=== PATIENT | male | born 1990 | race Caucasian/White ===

== ENCOUNTER 2020-03-05 19:19 | Emergency (ER) | payer MEDICARE ==
[~2020-03-05] VITALS: Ht 177.8 cm; Wt 83.9 kg
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
== END 2020-03-05 20:30 | disposition home or self-care (01) ==
LOC: ED 19:19
DX: S60.221A Contusion of right hand, initial encounter (principal); F17.200 Nicotine dependence, unspecified, uncomplicated; W22.8XXA Striking against or struck by other objects, initial encounter
CPT/HCPCS: 73130; 99283-25

== ENCOUNTER 2021-09-05 12:24 | Emergency (ER) | payer MEDICARE ==
[~2021-09-05] VITALS: Ht 177.8 cm; Wt 83.9 kg
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
[2021-09-06] MEDS ORDERED: ZIPRASIDONE HCL40 MG PO (02:09)
[2021-09-06] MEDS ORDERED: GEODON20 MG PO (02:10)
== END 2021-09-05 18:58 | disposition left against medical advice (07) ==
LOC: ED 12:24
DX: F29 Unspecified psychosis not due to a substance or known physiological condition (principal); J45.909 Unspecified asthma, uncomplicated; F17.200 Nicotine dependence, unspecified, uncomplicated; Z20.822 Contact with and (suspected) exposure to COVID-19
CPT/HCPCS: 36415; 80053; 81001; 84443; 85025; 99284; G0480; U0003

== ENCOUNTER 2021-09-06 01:37 | Emergency (ER) | payer MEDICARE ==
[~2021-09-06] VITALS: Ht 177.8 cm; Wt 89.6 kg
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
[2021-09-06] MEDS ORDERED: ZIPRASIDONE HCL40 MG PO (02:09)
[2021-09-06] MEDS ORDERED: GEODON20 MG PO (02:10)
== END 2021-09-06 03:10 | disposition home or self-care (01) ==
LOC: ED 01:37
DX: F29 Unspecified psychosis not due to a substance or known physiological condition (principal); J45.909 Unspecified asthma, uncomplicated; F17.200 Nicotine dependence, unspecified, uncomplicated; Z88.8 Allergy status to other drugs, medicaments and biological substances; Z79.899 Other long term (current) drug therapy
CPT/HCPCS: 99284

== ENCOUNTER 2021-09-06 21:40 | Emergency (ER) | payer MEDICARE ==
[~2021-09-06] VITALS: Ht 177.8 cm; Wt 89.6 kg
[~2021-09-06 21:40] MED LIST: GEODON20 MG PO; ZIPRASIDONE HCL40 MG PO
--- OUTSIDE RECORDS SUMMARY | 2021-09-06 22:48 | XMS ---
PreManage Notification: SURAJ PRATER Security Signals Officer Events No recent Security Events currently on file CRITERIA MET - [facility] - 2 Visits in 30 Days - [facility] - 3 Facilities in 90 Days - 6 ED Visits in 6 Months CARE PROVIDERS TAYE Mohr Nurse Practitioner: Current PHONE: [phone] THALIA MCMAHON Physician Technical Coordinator Current PHONE: [phone] GAGE CABA Physician Technical Coordinator Current PHONE: [phone] Care Guidelines exist for the following facilities: [facility] ( 02/13/2020 ) [facility] ( 08/18/2019 ) [facility] ( 05/26/2019 ) [facility] ( 05/19/2019 ) Roger VISIT COUNT (12 MO.) 6 [facility] Tish 2 [facility] 3 BRIANNA Alegria TOTAL 11 NOTE: Visits indicate total known visits. ED/UCC VISIT TRACKING (12 MO.) 09/06/2021 21:41 [place]NA [place] TYPE: Emergency COMPLAINT: - MEDICAL CLEARANCE 09/06/2021 01:38 [place] [place] TYPE: Emergency COMPLAINT: - MEDICAL CLEARANCE 09/05/2021 12:27 [place] TYPE: Emergency COMPLAINT: - MEDICAL CLEARANCE 09/04/2021 00:22 [email or web address] [place] TYPE: Emergency DIAGNOSES: - si - Manic episode, unspecified 09/02/2021 11:23 [email or web address] [facility] [place] TYPE: Emergency DIAGNOSES: - Post-traumatic stress [...] visits to display in this time frame [email or web address]
== END 2021-09-07 00:16 | disposition home or self-care (01) ==
LOC: ED 21:40
DX: F29 Unspecified psychosis not due to a substance or known physiological condition (principal); J45.909 Unspecified asthma, uncomplicated; F17.200 Nicotine dependence, unspecified, uncomplicated; Z88.8 Allergy status to other drugs, medicaments and biological substances; Z79.899 Other long term (current) drug therapy
CPT/HCPCS: 99284